=== PATIENT | male | born 1960 | race Caucasian/White ===

== ENCOUNTER 2016-12-16 15:24 | Emergency (ER) | payer MEDICARE, MEDICAID ==
[~2016-12-16] VITALS: Ht 170.2 cm; Wt 68.9 kg
[~2016-12-16 15:24] MED LIST: ATOR40TA PO; BUSP15TA PO; CIPR-262 PO; DIPH50CA37 PO; EMTR1TAB6 PO; FINA5TAB3 PO; GEMF600T3 PO; METR500T PO; NEVI400T PO; OMEP20CA4 PO; OXAN10TA PO; TRAZ-144 PO
--- NOTE | 2016-12-16 15:43 | NUR ---
PT IN ROOM AWAITING MSD.
[2016-12-16] MEDS ORDERED: predniSONE 20 MG TABLET PO ONE (18:15)
[2016-12-16] MEDS ORDERED: AZITHROMYCIN 250 MG TABLET PO ONE (18:15)
--- NOTE | 2016-12-16 18:16 | NUR ---
MSE COMPLETED, MEDS ADMINISRTERED, PT D/C'D HOME, ACI/RX X2 GIVEN. PT AMBUKLATED W/O DIFF/TOOK ALL BELONGINGS.
--- NOTE | 2016-12-16 18:18 | NUR ---
WAS NOTIED THAT PT ALLERGIC TO ZITHROMIACIN
[2016-12-16 18:20] VITALS: BP 142/92
[2016-12-16] MEDS ORDERED: AZITHROMYCIN 250 MG TABLET ONE (18:25)
[2016-12-16] MEDS ORDERED: predniSONE 10 MG TABLET ONE (18:26)
[2016-12-16] MEDS ORDERED: predniSONE 50 MG TABLET ONE (18:26)
== END 2016-12-16 18:22 | disposition home or self-care (01) ==
LOC: ER 15:24
DX: L03.211 Cellulitis of face (principal); G43.909 Migraine, unspecified, not intractable, without status migrainosus; I10 Essential (primary) hypertension; E78.00 Pure hypercholesterolemia, unspecified; F32.9 Major depressive disorder, single episode, unspecified; K21.9 Gastro-esophageal reflux disease without esophagitis; F41.9 Anxiety disorder, unspecified
CPT/HCPCS: 99283; A4663; J7512 ×2; Q0144

== ENCOUNTER 2017-01-17 22:47 | Emergency (ER) | payer MEDICARE, MEDICAID ==
[~2017-01-17] VITALS: Ht 170.2 cm; Wt 69.9 kg
[2017-01-17] MEDS ORDERED: LISI2.5T2 PO (23:01)
[2017-01-17] MEDS ORDERED: EMTR1TAB13 PO (23:01)
--- NOTE | 2017-01-17 23:12 | NUR ---
DR. PERKINS AT BEDSIDE FOR MSE.
[2017-01-17 23:46] LABS: BILIRUBIN,TOTAL 0.4 mg/dL (0.2-1.0); CREATININE 0.9 mg/dL (0.6-1.3); POTASSIUM 3.8 mmol/L (3.5-5.1)
[2017-01-18 00:22] LABS: HEMOGLOBIN 15.1 G/DL (14.0-18.0); MEAN CORPUSCULAR HEMOGLOBIN 32.3 UUG (27.0-31.0); MEAN CORPUSCULAR VOLUME 96.3 FL (82.0-92.0); RED BLOOD CELL COUNT(AUTO) 4.67 MIL/UL (4.7-6.1); WHITE BLOOD COUNT (AUTO) 5.6 K/UL (4.0-11.2)
[2017-01-18 00:23] LABS: BASOPHILS % (AUTO) 0.7 % (0.0-2.0); EOSINOPHILS % (AUTO) 2.2 % (0.0-7.0); LYMPHOCYTES # (AUTO) 2.8 K/UL (0.8-4.8); LYMPHOCYTES % (AUTO) 49.9 % (20.5-51.5); MEAN CORPUSCULAR HGB CONC 34 g/dL (32.0-37.0); MONOCYTES # (AUTO) 0.5 K/UL (0.1-1.30); MONOCYTES % (AUTO) 8.4 % (0.0-11.0); NEUTROPHILS # (AUTO) 2.2 K/UL (1.8-8.9); NEUTROPHILS % (AUTO) 38.8 % (38.5-71.5); PLATELET COUNT (AUTO) 242 K/UL (150-450)
[2017-01-18 00:24] LABS: EOSINOPHILS # (AUTO) 0.1 K/uL (0.0-0.7)
--- NOTE | 2017-01-18 00:56 | NUR ---
Patient discharged to home in stable conditon. Written and verbal after care instructions given. Patient verbalizes understanding of instructions. PATIENT LEFT WITH STABLE GAIT.
[2017-01-18 00:57] VITALS: BP 145/79
== END 2017-01-18 00:58 | disposition home or self-care (01) ==
LOC: ER 22:48
DX: L03.213 Periorbital cellulitis (principal); I10 Essential (primary) hypertension; E78.00 Pure hypercholesterolemia, unspecified; G43.909 Migraine, unspecified, not intractable, without status migrainosus; G89.29 Other chronic pain; J45.909 Unspecified asthma, uncomplicated; K21.9 Gastro-esophageal reflux disease without esophagitis; Z88.0 Allergy status to penicillin; Z88.8 Allergy status to other drugs, medicaments and biological substances
CPT/HCPCS: 36415; 70480; 80053; 85025; 99285; A4663

== ENCOUNTER 2017-03-31 18:11 | Emergency (ER) | payer MEDICARE, MEDICAID ==
[~2017-03-31] VITALS: Ht 170.2 cm; Wt 68.0 kg
[~2017-03-31 18:11] MED LIST changes: -CIPR-262 PO; +EMTR1TAB13 PO; -EMTR1TAB6 PO; +LISI2.5T2 PO; -METR500T PO
[2017-03-31] MEDS ORDERED: ACYC800T PO (18:27)
--- NOTE | 2017-03-31 19:00 | NUR ---
PT IS IN ROOM #2A. DR PERKINS EVALUATED THE PT.
[2017-03-31] MEDS: ONDANSETRON 4 MG/2 ML VIAL IV ONE (19:34)
[2017-03-31] MEDS: PANTOPRAZOLE SODIUM 40 MG VIAL IV ONE (19:36)
[2017-03-31] MEDS: MAG HYDROX/AL HYDROX/SIMETH 30 ML LIQUID UDC PO ONE (19:41)
[2017-03-31] MEDS ORDERED: ONDANSETRON 4 MG/2 ML VIAL ONE (19:44)
[2017-03-31] MEDS ORDERED: PANTOPRAZOLE SODIUM 40 MG VIAL ONE (19:45)
[2017-03-31] MEDS: IV NORMAL SALINE 1000 ML BAG IV ONE (19:47)
[2017-03-31 19:50] LABS: BASOPHILS % (AUTO) 0.3 % (0.0-2.0); EOSINOPHILS # (AUTO) 0.2 K/uL (0.0-0.7); EOSINOPHILS % (AUTO) 3.1 % (0.0-7.0); HEMATOCRIT 45.7 % (40-50); HEMOGLOBIN 15.2 G/DL (14.0-18.0); LYMPHOCYTES # (AUTO) 1.7 K/UL (0.8-4.8); MEAN CORPUSCULAR HEMOGLOBIN 31.7 UUG (27.0-31.0); MEAN CORPUSCULAR HGB CONC 33 g/dL (32.0-37.0); MEAN CORPUSCULAR VOLUME 95.4 FL (82.0-92.0); MONOCYTES % (AUTO) 14.9 % (0.0-11.0); NEUTROPHILS # (AUTO) 3.7 K/UL (1.8-8.9); NEUTROPHILS % (AUTO) 55.7 % (38.5-71.5); PLATELET COUNT (AUTO) 228 K/UL (150-450); RED BLOOD CELL COUNT(AUTO) 4.79 MIL/UL (4.7-6.1); WHITE BLOOD COUNT (AUTO) 6.6 K/UL (4.0-11.2)
--- NOTE | 2017-03-31 19:55 | NUR ---
PATIENT IN BED, NO ACUTE DISTRESS NOTED. STATES HIS NAUSEA IS IMPROVED. PER PATIENT STATEMENT " I FEEL BETTER, MORE RELAXED"
[2017-03-31] MEDS ORDERED: MAG HYDROX/AL HYDROX/SIMETH 30 ML LIQUID UDC ONE (19:56)
[2017-03-31 20:03] LABS: CREATININE 0.9 mg/dL (0.6-1.3); POTASSIUM 3.7 mmol/L (3.5-5.1)
[2017-03-31 20:10] LABS: BILIRUBIN,DIRECT 0.2 mg/dL (0.0-0.2); BILIRUBIN,TOTAL 0.8 mg/dL (0.2-1.0); TOTAL PROTEIN, SERUM 7.1 g/dL (6.4-8.2)
--- NOTE | 2017-03-31 20:55 | NUR ---
Patient discharged to home in stable conditon. Written and verbal after care instructions given. Patient verbalizes understanding of instructions. Ambulated from ER with stable gait. All belongings with patient. Peripheral IV removed prior to discharge.
[2017-03-31 21:17] VITALS: BP 120/78
[2017-04-01] MEDS ORDERED: GABAPENTIN 300 MG CAPSULE PO ONE (05:30)
== END 2017-03-31 21:18 | disposition home or self-care (01) ==
LOC: ER 18:18
DX: A08.4 Viral intestinal infection, unspecified (principal); E78.00 Pure hypercholesterolemia, unspecified; F41.9 Anxiety disorder, unspecified; I10 Essential (primary) hypertension; Z88.0 Allergy status to penicillin; Z88.2 Allergy status to sulfonamides; Z88.5 Allergy status to narcotic agent; K21.9 Gastro-esophageal reflux disease without esophagitis; J45.909 Unspecified asthma, uncomplicated
CPT/HCPCS: 36415; 80048; 80076; 83690; 85025; 96374; 96375; 99284; A4663; C9113; J2405

== ENCOUNTER 2017-04-07 19:39 | Emergency (ER) | payer MEDICARE, MEDICAID ==
[~2017-04-07] VITALS: Ht 170.2 cm; Wt 67.1 kg
[~2017-04-07 19:39] MED LIST changes: +ACYC800T PO; -OXAN10TA PO
[2017-04-07] MEDS ORDERED: ONDANSETRON ODT 4 MG TAB.RAPDIS SL ONE (21:00)
[2017-04-07] MEDS ORDERED: DIPHENOXYLATE HCL/ATROP SULF TABLET PO ONE (21:00)
[2017-04-07 21:08] LABS: BASOPHILS % (AUTO) 0.4 % (0.0-2.0); EOSINOPHILS # (AUTO) 0.1 K/uL (0.0-0.7); EOSINOPHILS % (AUTO) 0.7 % (0.0-7.0); HEMATOCRIT 46.6 % (40-50); HEMOGLOBIN 15.5 G/DL (14.0-18.0); LYMPHOCYTES # (AUTO) 2.4 K/UL (0.8-4.8); LYMPHOCYTES % (AUTO) 19.9 % (20.5-51.5); MEAN CORPUSCULAR HGB CONC 33 g/dL (32.0-37.0); MEAN CORPUSCULAR VOLUME 96.3 FL (82.0-92.0); MONOCYTES # (AUTO) 0.7 K/UL (0.1-1.30); MONOCYTES % (AUTO) 5.9 % (0.0-11.0); NEUTROPHILS # (AUTO) 8.8 K/UL (1.8-8.9); NEUTROPHILS % (AUTO) 73.1 % (38.5-71.5); PLATELET COUNT (AUTO) 273 K/UL (150-450); RED BLOOD CELL COUNT(AUTO) 4.84 MIL/UL (4.7-6.1)
[2017-04-07] MEDS ORDERED: ONDANSETRON ODT 4 MG TAB.RAPDIS ONE (21:13)
[2017-04-07] MEDS ORDERED: DIPHENOXYLATE HCL/ATROP SULF TABLET ONE (21:13)
[2017-04-07 21:21] LABS: CREATININE 0.8 mg/dL (0.6-1.3); POTASSIUM 3.8 mmol/L (3.5-5.1)
[2017-04-07 21:30] LABS: BILIRUBIN,DIRECT 0.2 mg/dL (0.0-0.2); BILIRUBIN,TOTAL 0.7 mg/dL (0.2-1.0); TOTAL PROTEIN, SERUM 7.6 g/dL (6.4-8.2)
--- NOTE | 2017-04-07 21:51 | NUR ---
Patient discharged to home in stable conditon. Written and verbal after care instructions given. Patient verbalizes understanding of instructions. Ambulated from Er with stable gait. All belongings with patient.
[2017-04-07 21:53] VITALS: BP 127/77
[2017-04-07] MEDS ORDERED: KETOROLAC TROMETHAMINE 30 MG INJ IVP ONE (22:00)
[2017-04-07] MEDS ORDERED: IV NORMAL SALINE 1000 ML BAG IV ONE (22:00)
[2017-04-07] MEDS ORDERED: HYDROMORPHONE 1 MG/1 ML DISP.SYRIN IV ONE (22:00)
[2017-04-07] MEDS ORDERED: ONDANSETRON 4 MG/2 ML VIAL IV ONE (22:00)
== END 2017-04-07 21:54 | disposition home or self-care (01) ==
LOC: ER 19:39
DX: K52.9 Noninfective gastroenteritis and colitis, unspecified (principal); E78.00 Pure hypercholesterolemia, unspecified; F41.9 Anxiety disorder, unspecified; I10 Essential (primary) hypertension; J45.909 Unspecified asthma, uncomplicated; K21.9 Gastro-esophageal reflux disease without esophagitis; Z88.0 Allergy status to penicillin; Z88.2 Allergy status to sulfonamides; Z88.5 Allergy status to narcotic agent; G43.909 Migraine, unspecified, not intractable, without status migrainosus
CPT/HCPCS: 36415; 83690; 85025; A4663; Q0162

== ENCOUNTER 2017-04-26 19:21 | Emergency (ER) | payer MEDICARE, MEDICAID ==
[~2017-04-26] VITALS: Ht 170.2 cm; Wt 67.1 kg
[2017-04-26] MEDS ORDERED: IV NORMAL SALINE 1000 ML BAG IV ONE (21:00)
[2017-04-26] MEDS ORDERED: ONDANSETRON 4 MG/2 ML VIAL IV ONE (21:00)
[2017-04-26 21:43] LABS: BASOPHILS % (AUTO) 0.2 % (0.0-2.0); EOSINOPHILS # (AUTO) 0.1 K/uL (0.0-0.7); EOSINOPHILS % (AUTO) 0.4 % (0.0-7.0); HEMATOCRIT 48.2 % (36.7-47.1); HEMOGLOBIN 16.5 g/dL (12.5-16.3); LYMPHOCYTES % (AUTO) 7.7 % (20.5-51.5); MEAN CORPUSCULAR HEMOGLOBIN 32.9 uug (23.8-33.4); MEAN CORPUSCULAR HGB CONC 34 g/dL (32.5-36.3); MEAN CORPUSCULAR VOLUME 95.8 fL (73.0-96.2); MONOCYTES # (AUTO) 0.7 K/uL (2.0-10.0); MONOCYTES % (AUTO) 5.3 % (0.0-11.0); NEUTROPHILS # (AUTO) 11.7 K/uL (1.8-8.9); NEUTROPHILS % (AUTO) 86.4 % (38.5-71.5); PLATELET COUNT (AUTO) 257 K/uL (152-348); RED BLOOD CELL COUNT(AUTO) 5.03 MIL/uL (4.06-5.63); WHITE BLOOD COUNT (AUTO) 13.5 K/uL (3.6-10.2)
[2017-04-26 21:55] LABS: CREATININE 0.9 mg/dL (0.6-1.3); POTASSIUM 4.1 mmol/L (3.5-5.1)
--- NOTE | 2017-04-26 21:57 | NUR ---
56 Y/O MALE PLACED IN BED 2B C/O ABDOMINAL CRAMPING WITH DIARRHEA. PT SEEN BY . Bartolome/Nicole PLACED AND IVF RUNNING. LABS DRAWN AND SENT TO LAB. ZOFRAN GIVEN IV. PT AT THIS TIME APPEARS COMFORTABLE.
[2017-04-26] MEDS ORDERED: ONDANSETRON 4 MG/2 ML VIAL ONE ×2 (21:59→22:00)
[2017-04-26 22:00] LABS: BILIRUBIN,DIRECT 0.1 mg/dL (0.0-0.2); BILIRUBIN,TOTAL 0.7 mg/dL (0.2-1.0); TOTAL PROTEIN, SERUM 7.9 g/dL (6.4-8.2)
--- NOTE | 2017-04-26 22:50 | NUR ---
DX - DIARRHEA. ACI WITH RX GIVEN. PT DISCHARGED HOME TO FOLLOW UP WITH PMD.
[2017-04-26 23:03] LABS: *BILIRUBIN,URIN NEGATIVE (NEGATIVE); *BLOOD, URINE NEGATIVE (NEGATIVE); *CLARITY,URINE CLEAR (CLEAR); *COLOR,URINE YELLOW (YELLOW); *KETONES,URINE NEGATIVE (NEGATIVE); *PROTEIN,URINE NEGATIVE (NEGATIVE); *UROBILINOGEN,URINE 0.2 E.U./dl (NORMAL); LEUKOCYTE ESTERASE ,URINE NEGATIVE (NEGATIVE); NITRITE, URINE NEGATIVE (NEGATIVE); UGLUCOSE NEGATIVE (NEGATIVE)
[2017-04-26 23:10] LABS: BACTERIA,URINE NONE SEEN /HPF (NONE SEEN); MUCUS,URINE FEW /LPF (0-FEW); RBC,URINE 0-3 /HPF (0-3); SQUAMOUS EPITHELIAL CELL,UR FEW /HPF (NONE SEEN); WBC,URINE NONE SEEN /HPF (0-3)
[2017-04-26] MEDS ORDERED: ONDANSETRON ODT 4 MG TAB.RAPDIS SL ONE (23:15)
[2017-04-26] MEDS ORDERED: ONDANSETRON HCL 4 MG TABLET ONE (23:22)
== END 2017-04-26 22:54 | disposition home or self-care (01) ==
LOC: ER 19:21
DX: R11.2 Nausea with vomiting, unspecified (principal); R19.7 Diarrhea, unspecified; R10.9 Unspecified abdominal pain; E78.00 Pure hypercholesterolemia, unspecified; I10 Essential (primary) hypertension; J45.909 Unspecified asthma, uncomplicated; K21.9 Gastro-esophageal reflux disease without esophagitis; Z88.0 Allergy status to penicillin; Z88.2 Allergy status to sulfonamides; Z88.5 Allergy status to narcotic agent; R51 Headache
CPT/HCPCS: 36415; 70030-TC; 83690; 85025; 93005; A4663; J2405; J7030; Q0162

== ENCOUNTER 2017-12-26 23:13 | Emergency (ER) | payer MEDICARE, MEDICAID ==
[~2017-12-26] VITALS: Ht 170.2 cm; Wt 67.6 kg
[~2017-12-26 23:13] MED LIST changes: -TRAZ-144 PO; +TRAZ-182 PO
--- NOTE | 2017-12-26 23:25 | NUR ---
To room 2B; seen and evaluated by Dr. Ramos.
[2017-12-26] MEDS ORDERED: IV NORMAL SALINE 1000 ML BAG IV ONE (23:30)
[2017-12-26] MEDS ORDERED: KETOROLAC TROMETHAMINE 30 MG INJ IM ONE (23:30)
[2017-12-26] MEDS ORDERED: METOCLOPRAMIDE HCL 10 MG/2 ML VIAL IV ONE (23:30)
[2017-12-26 23:47] LABS: BASOPHILS # (AUTO) 0.1 K/uL (0.0-8.0); BASOPHILS % (AUTO) 0.9 % (0.0-2.0); EOSINOPHILS # (AUTO) 0.1 K/uL (0.0-0.7); EOSINOPHILS % (AUTO) 1.7 % (0.0-7.0); HEMATOCRIT 41.6 % (36.7-47.1); HEMOGLOBIN 14.6 g/dL (12.5-16.3); LYMPHOCYTES # (AUTO) 2.6 K/uL (20.0-40.0); LYMPHOCYTES % (AUTO) 40.1 % (20.5-51.5); MEAN CORPUSCULAR HEMOGLOBIN 33.4 uug (23.8-33.4); MEAN CORPUSCULAR HGB CONC 35 g/dL (32.5-36.3); MEAN CORPUSCULAR VOLUME 95.2 fL (73.0-96.2); MONOCYTES # (AUTO) 0.6 K/uL (2.0-10.0); MONOCYTES % (AUTO) 9.7 % (0.0-11.0); NEUTROPHILS % (AUTO) 47.6 % (38.5-71.5); PLATELET COUNT (AUTO) 260 K/uL (152-348); RED BLOOD CELL COUNT(AUTO) 4.36 MIL/uL (4.06-5.63); WHITE BLOOD COUNT (AUTO) 6.4 K/uL (3.6-10.2)
[2017-12-26 23:55] LABS: CREATININE 0.8 mg/dL (0.6-1.3); POTASSIUM 3.5 mmol/L (3.5-5.1)
[2017-12-27] MEDS ORDERED: METOCLOPRAMIDE HCL 10 MG/2 ML VIAL ONE (00:04)
[2017-12-27] MEDS ORDERED: KETOROLAC TROMETHAMINE 30 MG INJ ONE (00:04)
[2017-12-27] MEDS ORDERED: KETOROLAC TROMETHAMINE 30 MG INJ IVP ONE (00:15)
[2017-12-27] MEDS ORDERED: LISINOPRIL 10 MG TABLET PO ONE (00:30)
[2017-12-27] MEDS ORDERED: LISINOPRIL 5 MG TABLET ONE (00:56)
[2017-12-27] MEDS ORDERED: diphenhydrAMINE 50 MG/1 ML VIAL IV ONE (01:00)
[2017-12-27] MEDS ORDERED: PROCHLORPERAZINE EDISYLATE 10 MG/2 ML VIAL IV ONE (01:00)
[2017-12-27] MEDS ORDERED: PROCHLORPERAZINE EDISYLATE 10 MG/2 ML VIAL ONE (01:06)
[2017-12-27] MEDS ORDERED: diphenhydrAMINE 50 MG/1 ML VIAL ONE (01:06)
[2017-12-27] MEDS ORDERED: MAGNESIUM SULFATE/D5W 100 ML ONE ×2 (01:06→02:03)
[2017-12-27] MEDS: MAGNESIUM SULFATE/D5W 100 ML IV SCH ×2 (01:17→02:23)
--- NOTE | 2017-12-27 02:00 | NUR ---
Sleeping; NAD noted. BPs stable.
--- NOTE | 2017-12-27 02:25 | NUR ---
Dr. Ramos discussed results of labs with patient. Will Dc home.
--- NOTE | 2017-12-27 02:30 | NUR ---
Patient claims he feels a lot better; migraine headaches relieved.
--- NOTE | 2017-12-27 02:50 | NUR ---
Patient discharged to home in stable conditon. Written and verbal after care instructions given. Patient verbalizes understanding of instructions.
[2017-12-27 02:58] VITALS: BP 126/66
== END 2017-12-27 02:50 | disposition home or self-care (01) ==
LOC: ER 23:16
DX: S80.862A Insect bite (nonvenomous), left lower leg, initial encounter (principal); G43.909 Migraine, unspecified, not intractable, without status migrainosus; B20 Human immunodeficiency virus [HIV] disease; I10 Essential (primary) hypertension; E78.00 Pure hypercholesterolemia, unspecified; K21.9 Gastro-esophageal reflux disease without esophagitis; J45.909 Unspecified asthma, uncomplicated; Z90.89 Acquired absence of other organs; Z88.2 Allergy status to sulfonamides; Z88.0 Allergy status to penicillin; Z88.5 Allergy status to narcotic agent; Z88.8 Allergy status to other drugs, medicaments and biological substances; W57.XXXA Bitten or stung by nonvenomous insect and other nonvenomous arthropods, initial encounter; Y93.89 Activity, other specified; Y92.89 Other specified places as the place of occurrence of the external cause; Y99.8 Other external cause status
CPT/HCPCS: 36415; 80048; 85025; 96365; 96375; 99284; A4663; J0780; J1200; J1885; J2765; J3475 ×2; J7030

== ENCOUNTER 2018-02-15 22:34 | Emergency (ER) | payer MEDICARE, MEDICAID ==
[~2018-02-15] VITALS: Ht 170.2 cm; Wt 68.9 kg
[~2018-02-15 22:34] MED LIST changes: -GEMF600T3 PO; +GEMF600T4 PO
--- NOTE | 2018-02-15 23:40 | NUR ---
Patient out of unit for ct scan via wheelchair
--- NOTE | 2018-02-16 | NUR ---
Patient back from ct scan with no distress noted
--- NOTE | 2018-02-16 01:05 | NUR ---
Dr Mckeon into re eval patient
[2018-02-16] MEDS ORDERED: CEPHALEXIN MONOHYDRATE 500 MG CAPSULE ONE (01:17)
[2018-02-16] MEDS: CEPHALEXIN MONOHYDRATE 500 MG CAPSULE PO ONE (01:18)
[2018-02-16 01:28] VITALS: BP 148/95
--- NOTE | 2018-02-16 01:28 | NUR ---
Patient discharged to home in stable conditon. Written and verbal after care instructions given. Patient verbalizes understanding of instructions.
== END 2018-02-16 01:29 | disposition home or self-care (01) ==
LOC: ER 22:37
DX: S16.1XXA Strain of muscle, fascia and tendon at neck level, initial encounter (principal); M54.5 Low back pain; L03.211 Cellulitis of face; G89.29 Other chronic pain; M54.2 Cervicalgia; I10 Essential (primary) hypertension; E78.00 Pure hypercholesterolemia, unspecified; J45.909 Unspecified asthma, uncomplicated; K21.9 Gastro-esophageal reflux disease without esophagitis; Z88.2 Allergy status to sulfonamides; Z88.0 Allergy status to penicillin; Z88.1 Allergy status to other antibiotic agents; Z88.5 Allergy status to narcotic agent; Z88.8 Allergy status to other drugs, medicaments and biological substances; V49.9XXA Car occupant (driver) (passenger) injured in unspecified traffic accident, initial encounter; Y93.89 Activity, other specified; Y92.410 Unspecified street and highway as the place of occurrence of the external cause; Y99.8 Other external cause status
CPT/HCPCS: 70486; 72125; 72131; A4663

== ENCOUNTER 2018-03-23 23:29 | Emergency (ER) | payer MEDICARE, MEDICAID ==
[~2018-03-23] VITALS: Ht 170.2 cm; Wt 61.7 kg
[2018-03-24] MEDS ORDERED: IV NORMAL SALINE 1000 ML BAG IV ONE (00:15)
[2018-03-24] MEDS ORDERED: ONDANSETRON 4 MG/2 ML VIAL IV ONE (00:15)
[2018-03-24] MEDS ORDERED: ONDANSETRON 4 MG/2 ML VIAL ONE (00:28)
[2018-03-24 00:31] LABS: *BILIRUBIN,URIN NEGATIVE (NEGATIVE); *BLOOD, URINE NEGATIVE (NEGATIVE); *CLARITY,URINE CLEAR (CLEAR); *COLOR,URINE YELLOW (YELLOW); *KETONES,URINE NEGATIVE (NEGATIVE); *PROTEIN,URINE 2+ (NEGATIVE); *UROBILINOGEN,URINE 0.2 E.U./dl (NORMAL); LEUKOCYTE ESTERASE ,URINE NEGATIVE (NEGATIVE); NITRITE, URINE NEGATIVE (NEGATIVE); PH,URINE 5.5 (5.0-8.0); UGLUCOSE NEGATIVE (NEGATIVE)
[2018-03-24 00:34] LABS: BASOPHILS % (AUTO) 0.2 % (0.0-2.0); EOSINOPHILS % (AUTO) 0.3 % (0.0-7.0); HEMOGLOBIN 17.6 g/dL (12.5-16.3); LYMPHOCYTES # (AUTO) 0.8 K/uL (20.0-40.0); LYMPHOCYTES % (AUTO) 13.8 % (20.5-51.5); MEAN CORPUSCULAR HEMOGLOBIN 33.5 uug (23.8-33.4); MEAN CORPUSCULAR HGB CONC 35 g/dL (32.5-36.3); MONOCYTES % (AUTO) 16.1 % (0.0-11.0); NEUTROPHILS # (AUTO) 4.2 K/uL (1.8-8.9); NEUTROPHILS % (AUTO) 69.6 % (38.5-71.5); PLATELET COUNT (AUTO) 226 K/uL (152-348); RED BLOOD CELL COUNT(AUTO) 5.25 MIL/uL (4.06-5.63)
[2018-03-24 00:50] LABS: BACTERIA,URINE FEW /HPF (NONE SEEN); MUCUS,URINE MANY /LPF (0-FEW); RBC,URINE 0-3 /HPF (0-3); SQUAMOUS EPITHELIAL CELL,UR NONE SEEN /HPF (NONE SEEN); WBC,URINE 0-3 /HPF (0-3)
[2018-03-24 00:52] LABS: BILIRUBIN,DIRECT 0.2 mg/dL (0.0-0.2); BILIRUBIN,TOTAL 0.7 mg/dL (0.2-1.0); CREATININE 0.9 mg/dL (0.6-1.3); POTASSIUM 3.6 mmol/L (3.5-5.1); TOTAL PROTEIN, SERUM 8.5 g/dL (6.4-8.2)
[2018-03-24] MEDS ORDERED: IV NORMAL SALINE 500 ML BAG IV ONE (01:15)
[2018-03-24 01:16] LABS: LYMPHOCYTES % (MANUAL) 15 % (20-40); MONOCYTES % (MANUAL) 13 % (2-10); NEUTROPHILS % (MANUAL) 72 % (42-75)
--- NOTE | 2018-03-24 02:47 | NUR ---
IV removed. Catheter intact and site benign. Pressure and 4x4 gauze applied to site. No bleeding noted.
--- NOTE | 2018-03-24 02:56 | NUR ---
Patient discharged to home in stable conditon. Written and verbal after care instructions given. Patient verbalizes understanding of instructions. Pt ambulated out of ER in steady gait. All belongings with pt. VSS. NAD noted. Pt states he feels much better.
[2018-03-24 02:58] VITALS: BP 138/88
== END 2018-03-24 02:59 | disposition home or self-care (01) ==
LOC: ER 23:31
DX: E86.0 Dehydration (principal); R00.0 Tachycardia, unspecified; I10 Essential (primary) hypertension; E78.00 Pure hypercholesterolemia, unspecified; J45.909 Unspecified asthma, uncomplicated; K21.9 Gastro-esophageal reflux disease without esophagitis; Z88.0 Allergy status to penicillin; Z88.5 Allergy status to narcotic agent; Z88.1 Allergy status to other antibiotic agents; Z88.2 Allergy status to sulfonamides; Z88.8 Allergy status to other drugs, medicaments and biological substances; Z90.89 Acquired absence of other organs
CPT/HCPCS: 36415; 80048; 80076; 81001; 83605; 83690; 84484; 85025; 85730; 86625; 87015; 87046; 87427; 87493; 87899; 93005; 96361; 96374; 99284; J2405; 70030-TC; A4663; J7030; J7040

== ENCOUNTER 2018-04-25 04:10 | Emergency (ER) | payer MEDICARE, MEDICAID ==
[~2018-04-25] VITALS: Ht 170.2 cm; Wt 61.2 kg
[~2018-04-25 04:10] MED LIST changes: -GEMF600T4 PO; +GEMF600T5 PO
--- NOTE | 2018-04-25 05:24 | NUR ---
Pt. ambulated into ED w/ c/o supraorbital L forehead pain 11/08, posterior L head pain 11/08, redness L eye w/ reports of blurred vision on that side, 10/09 pain to L 5th toe from bumping into furniture, denies CP/SOB/F/C/N/V/D, will continue to monitor, MD at bedside for MSE,
--- NOTE | 2018-04-25 05:25 | NUR ---
Rad. tech. at bedside for xray
--- NOTE | 2018-04-25 05:30 | NUR ---
Cm street at bedside for transport to CT,
[2018-04-25] MEDS ORDERED: LISINOPRIL 10 MG TABLET ONE (06:14)
[2018-04-25] MEDS: LISINOPRIL 10 MG TABLET PO ONE (06:27)
--- NOTE | 2018-04-25 06:28 | NUR ---
Patient discharged to home in stable conditon. Written and verbal after care instructions given. Patient verbalizes understanding of instructions. Pt. d/c per MD orders, d/c papers signed, all belongings w/ pt., ambulated out of ED w/ steady gait, left in private vehicle, ID band removed, no acute distress,
[2018-04-25 06:29] VITALS: BP 148/108
== END 2018-04-25 06:30 | disposition home or self-care (01) ==
LOC: ER 04:12
DX: S90.122A Contusion of left lesser toe(s) without damage to nail, initial encounter (principal); H11.32 Conjunctival hemorrhage, left eye; M47.892 Other spondylosis, cervical region; I10 Essential (primary) hypertension; E78.00 Pure hypercholesterolemia, unspecified; J45.909 Unspecified asthma, uncomplicated; K21.9 Gastro-esophageal reflux disease without esophagitis; G89.29 Other chronic pain; M54.2 Cervicalgia; Z88.0 Allergy status to penicillin; Z88.1 Allergy status to other antibiotic agents; Z88.2 Allergy status to sulfonamides; Z88.5 Allergy status to narcotic agent; Z88.8 Allergy status to other drugs, medicaments and biological substances; Z79.899 Other long term (current) drug therapy; Z79.891 Long term (current) use of opiate analgesic; W22.8XXA Striking against or struck by other objects, initial encounter; Y93.89 Activity, other specified; Y92.89 Other specified places as the place of occurrence of the external cause; Y99.8 Other external cause status
CPT/HCPCS: 72125; 73660; A4663

== ENCOUNTER 2018-10-31 22:57 | Inpatient (IN) | payer MEDICARE, MEDICAID ==
[~2018-10-31] VITALS: Ht 170.2 cm; Wt 70.3 kg
[2018-10-31 23:56] LABS: BASOPHILS % (AUTO) 0.7 % (0.0-2.0); EOSINOPHILS # (AUTO) 0.1 K/uL (0.0-0.7); EOSINOPHILS % (AUTO) 2.2 % (0.0-7.0); HEMATOCRIT 42.7 % (36.7-47.1); HEMOGLOBIN 14.6 g/dL (12.5-16.3); LYMPHOCYTES # (AUTO) 2.7 K/uL (20.0-40.0); LYMPHOCYTES % (AUTO) 44.5 % (20.5-51.5); MEAN CORPUSCULAR HEMOGLOBIN 32.5 uug (23.8-33.4); MEAN CORPUSCULAR HGB CONC 34 g/dL (32.5-36.3); MEAN CORPUSCULAR VOLUME 95.4 fL (73.0-96.2); MONOCYTES # (AUTO) 0.6 K/uL (2.0-10.0); MONOCYTES % (AUTO) 9.4 % (0.0-11.0); NEUTROPHILS # (AUTO) 2.6 K/uL (1.8-8.9); NEUTROPHILS % (AUTO) 43.2 % (38.5-71.5); PLATELET COUNT (AUTO) 228 K/uL (152-348); RED BLOOD CELL COUNT(AUTO) 4.48 MIL/uL (4.06-5.63); WHITE BLOOD COUNT (AUTO) 6.1 K/uL (3.6-10.2)
[2018-11-01 00:08] LABS: CREATININE 0.9 mg/dL (0.6-1.3); POTASSIUM 3.8 mmol/L (3.5-5.1)
[2018-11-01 00:21] LABS: BILIRUBIN,DIRECT 0.1 mg/dL (0.0-0.2); BILIRUBIN,TOTAL 0.4 mg/dL (0.2-1.0); TOTAL PROTEIN, SERUM 7.8 g/dL (6.4-8.2)
--- NOTE | 2018-11-01 00:57 | NUR ---
Pt. resting in bed, bed in low position, wheels locked, all pt. needs met, NAD
[2018-11-01] MEDS ORDERED: NITROGLYCERIN 0.4 MG/TAB BOTTLE SL ONE ×2 (01:28→01:30)
--- NOTE | 2018-11-01 01:30 | NUR ---
1st nitro given
--- NOTE | 2018-11-01 01:34 | NUR ---
Called for tele bed, pt. to admit to [phone]
--- NOTE | 2018-11-01 01:39 | NUR ---
[facility] called for panel call
--- NOTE | 2018-11-01 01:41 | NUR ---
CP resolved after 1st nitro,
[2018-11-01] MEDS ORDERED: EMTR1TAB6 PO (01:49)
[2018-11-01] MEDS ORDERED: EMTR1TAB13 PO (01:51)
--- NOTE | 2018-11-01 02:30 | NUR ---
Gave report to Luz Marina
[2018-11-01] MEDS ORDERED: Z GUARD REMEDY PASTE 57 GM TUBE TOP PRN (02:45)
[2018-11-01] MEDS ORDERED: HYDROCODONE/APAP 5-325MG TABLET PO PRN (02:45)
[2018-11-01] MEDS ORDERED: ONDANSETRON 4 MG/2 ML VIAL IV PRN (02:45)
[2018-11-01] MEDS ORDERED: NITROGLYCERIN 0.4 MG/TAB BOTTLE SL PRN (02:45)
[2018-11-01] MEDS ORDERED: MORPHINE SULFATE 2 MG/1 ML DISP.SYRIN IV PRN (02:45)
[2018-11-01] MEDS ORDERED: BUSPIRONE PO SCH ×3 (02:45→21:00)
[2018-11-01] MEDS ORDERED: MAGNESIUM HYDROXIDE 30 ML LIQUID UDC PO PRN (02:45)
[2018-11-01] MEDS ORDERED: ACETAMINOPHEN 325 MG TABLET PO PRN (02:45)
--- NOTE | 2018-11-01 03:00 | NUR ---
Received patient from ED via wheelchair, accompanied by Umer ED RN. Patient is alert and oriented x 4, ambulatory. No complaints of chest pain at the moment. Patient brought with him some home medications which we will send to the pharmacy. Patient oriented to unit. Noise and lights subdued. Will continue to monitor.
--- NOTE | 2018-11-01 03:15 | NUR ---
Pt. transferred off unit via wheelchair, all belongings w/ pt., IV intact, chart copied and sent w/ pt., NAD
[2018-11-01 03:29] VITALS: BP 151/103
[2018-11-01] MEDS ORDERED: BUSPIRONE PO ONE ×2 (04:15)
[2018-11-01] MEDS ORDERED: ENOXAPARIN SODIUM 40 MG/0.4 ML DISP.SYRIN SQ ONE (04:15)
[2018-11-01] MEDS ORDERED: busPIRone 5 MG TABLET ONE ×2 (04:17→20:28)
--- NOTE | 2018-11-01 06:04 | NUR ---
Patient slept well throughout the night, no recurrence of any chest pain. Attended all needs, ensured safety and comfort. Patient was given the due 45mg [employer] rehabilitation services aide as confirmed by pharmacy only 45mg is the due dose.
[2018-11-01 06:24] VITALS: BP 120/84
--- NOTE | 2018-11-01 07:34 | NUR ---
Patient resting comfortably in bed at this time. SR on tele. no complaints of Chest pain at this time. A/Ox4. Stable condition. No signs of distress. Call light within reach of patient. Will continue to monitor throughout shift.
[2018-11-01 08:16] VITALS: BP 145/89
[2018-11-01] MEDS: GEMFIBROZIL 600 MG TABLET PO SCH ×2 (08:27→16:25)
[2018-11-01] MEDS ORDERED: PANTOPRAZOLE SODIUM 40 MG TABLET.DR PO SCH (08:30)
[2018-11-01] MEDS ORDERED: Medication Not On Formulary EA (Emtricitabine/Tenofov Alafenam (Descovy 200-25 mg Tablet PO SCH (09:00)
[2018-11-01] MEDS ORDERED: busPIRone 5 MG TABLET PO SCH (09:00)
[2018-11-01] MEDS ORDERED: NEVIRAPINE 400 MG PO SCH (09:00)
[2018-11-01] MEDS ORDERED: FINASTERIDE 5 MG TABLET PO SCH (09:00)
[2018-11-01] MEDS ORDERED: OMEPRAZOLE 40 MG PO SCH (09:00)
[2018-11-01] MEDS ORDERED: BUSPIRONE HCL 15 MG PO SCH (09:00)
[2018-11-01] MEDS ORDERED: LISINOPRIL 5 MG TABLET PO SCH (09:24)
[2018-11-01 09:53] LABS: MAGNESIUM 2.1 mg/dL (1.8-2.4)
[2018-11-01] MEDS ORDERED: VIRAMUNE PO SCH (10:00)
[2018-11-01] MEDS ORDERED: DESCOVY 200-25MG TABLET PO SCH (10:00)
[2018-11-01 11:50] LABS: *BILIRUBIN,URIN NEGATIVE (NEGATIVE); *BLOOD, URINE NEGATIVE (NEGATIVE); *CLARITY,URINE CLEAR (CLEAR); *COLOR,URINE YELLOW (YELLOW); *KETONES,URINE NEGATIVE (NEGATIVE); *UROBILINOGEN,URINE 0.2 E.U./dl (NORMAL); LEUKOCYTE ESTERASE ,URINE NEGATIVE (NEGATIVE); NITRITE, URINE NEGATIVE (NEGATIVE); PH,URINE 5.5 (5.0-8.0); UGLUCOSE NEGATIVE (NEGATIVE)
[2018-11-01 11:52] LABS: *AMPHETAMINE, URINE NEGATIVE (NEGATIVE); *BARBITURATE, URINE NEGATIVE (NEGATIVE); *CANNABINOID, URINE NEGATIVE (NEGATIVE); *COCCAINE, URINE NEGATIVE (NEGATIVE); *OPIATE, URINE NEGATIVE (NEGATIVE); *PHENCYCLIDINE SCREEN,URINE NEGATIVE (NEGATIVE)
[2018-11-01 11:56] VITALS: BP 120/83
--- NOTE | 2018-11-01 12:18 | NUR ---
No complaints of chest pain throughout shift thus far.
[2018-11-01 15:25] VITALS: BP 151/86
[2018-11-01] MEDS ORDERED: ACYCLOVIR 200 MG CAPSULE PO SCH (17:22)
--- NOTE | 2018-11-01 18:25 | NUR ---
NSR on telemetry. No complaints of chest pain throughout entire shift. Vital signs stable. Echocardiogram completed. Awaiting Information Systems Manager consultation. Stable throughout shift. No signs of distress. Safety measures implemented. Call light within reach. Will continue to monitor patient until end of shift.
--- NOTE | 2018-11-01 19:30 | NUR ---
Received patient awake in bed, alert and oriented x4 and ambulatory. No complaints of chest pain. Noted awaiting cardiology consult, pending to be cleared for discharge. will continue to monitor.
--- NOTE | 2018-11-01 20:00 | NUR ---
Communicated with Cb Palacios that patient wants to go home tonight and asked if an outpatient cardiology consult will be possible. Cb said patient can go AMA if he wants but he would like the patient to be seen by the underwriting service representative. Spoke and explained Cb's decision to patient who verbalized understanding and opted to wait for the underwriting service representative.
[2018-11-01 20:05] VITALS: BP 139/82
[2018-11-01] MEDS ORDERED: ATORVASTATIN 40 MG TABLET PO SCH (21:00)
[2018-11-01] MEDS ORDERED: TRAZODONE 50 MG TABLET PO SCH (21:00)
--- NOTE | 2018-11-01 21:33 | NUR ---
Dr. Joiner here to see the patient. Per Dr. Joiner patient can be discharged tonshelley holloway. Awaiting discharge orders.
--- NOTE | 2018-11-01 22:25 | NUR ---
Wheeled patient to hospital lobby accompanied by ULISES in stable condition. Patient discharged via private car accompanied by Mak, friend/partner. Patient has all discharge paperwork and he verbalized he will follow up with his PCP and homemaking rehabilitation consultant as instructed by Cb Palacios DNP. Patient was instructed also to come back tomorrow to sheepskin pickler his home medications from the pharmacy, patient verbalized understanding. Patient informed that pharmacy is open from 7am to 9pm tomorrow. Nursing art objects supervisor and charge nurse aware of this circumstance.
[2018-11-02] MEDS ORDERED: ENOXAPARIN SODIUM 40 MG/0.4 ML DISP.SYRIN SQ SCH (09:00)
[2018-11-02] MEDS ORDERED: ASPIRIN EC 81 MG TABLET.DR PO SCH (09:00)
== END 2018-11-01 22:25 | disposition home or self-care (01) | DRG 303 ==
LOC: ER 22:57 → TELE3 11-01 02:44
PROVIDERS: ADMIT Nurse Practitioner Acute Care; ATTEND Hospitalist
DX: I25.10 Atherosclerotic heart disease of native coronary artery without angina pectoris (principal); F41.9 Anxiety disorder, unspecified; G89.4 Chronic pain syndrome; K21.9 Gastro-esophageal reflux disease without esophagitis; I10 Essential (primary) hypertension; Z86.19 Personal history of other infectious and parasitic diseases; F10.21 Alcohol dependence, in remission; Z87.891 Personal history of nicotine dependence; E78.5 Hyperlipidemia, unspecified; K58.9 Irritable bowel syndrome, unspecified; J45.909 Unspecified asthma, uncomplicated; Z79.899 Other long term (current) drug therapy; I11.9 Hypertensive heart disease without heart failure; I07.1 Rheumatic tricuspid insufficiency; G43.909 Migraine, unspecified, not intractable, without status migrainosus; G62.9 Polyneuropathy, unspecified; Z83.3 Family history of diabetes mellitus; Z82.49 Family history of ischemic heart disease and other diseases of the circulatory system; F43.9 Reaction to severe stress, unspecified; E78.00 Pure hypercholesterolemia, unspecified
CPT/HCPCS: 36415; 70030-TC; 71045; 80307; 83735; 84100; 85025; 85730; 87086; 87400; 93005; 93307; A4663; G0378; J1650; J2405

== ENCOUNTER 2018-11-24 20:46 | Emergency (ER) | payer MEDICARE, MEDICAID ==
[~2018-11-24] VITALS: Ht 170.2 cm; Wt 70.8 kg
--- NOTE | 2018-11-24 21:02 | NUR ---
x-ray tech at bedside.
--- NOTE | 2018-11-24 21:20 | NUR ---
Patient discharged to home in stable conditon. Written and verbal after care instructions given. Patient verbalizes understanding of instructions. patient alert and oriented x4. patient able to ambulate self. all personal belongings and exit care package taken with patient.
[2018-11-24 21:22] VITALS: BP 129/78
== END 2018-11-24 21:19 | disposition home or self-care (01) ==
LOC: ER 20:46
DX: S90.122A Contusion of left lesser toe(s) without damage to nail, initial encounter (principal); G43.909 Migraine, unspecified, not intractable, without status migrainosus; I10 Essential (primary) hypertension; E78.00 Pure hypercholesterolemia, unspecified; F41.9 Anxiety disorder, unspecified; K21.9 Gastro-esophageal reflux disease without esophagitis; Z88.2 Allergy status to sulfonamides; Z88.0 Allergy status to penicillin; Z88.5 Allergy status to narcotic agent; Z88.8 Allergy status to other drugs, medicaments and biological substances; Z79.899 Other long term (current) drug therapy; W22.8XXA Striking against or struck by other objects, initial encounter; Y93.89 Activity, other specified; Y92.89 Other specified places as the place of occurrence of the external cause; Y99.8 Other external cause status
CPT/HCPCS: 73630; A4663

== ENCOUNTER 2020-03-16 14:55 | Emergency (ER) | payer MEDICARE, OTHER ==
[~2020-03-16] VITALS: Ht 170.2 cm; Wt 70.8 kg
--- NOTE | 2020-03-16 15:11 | NUR ---
Dr Yates at the bedside for MSE.
[2020-03-16] MEDS ORDERED: METOCLOPRAMIDE HCL 10 MG/2 ML VIAL IM ONE (15:15)
[2020-03-16] MEDS ORDERED: diphenhydrAMINE 50 MG/1 ML VIAL IM ONE (15:15)
[2020-03-16] MEDS ORDERED: diphenhydrAMINE 50 MG/1 ML VIAL ONE (15:18)
[2020-03-16] MEDS ORDERED: METOCLOPRAMIDE HCL 10 MG/2 ML VIAL ONE (15:18)
--- NOTE | 2020-03-16 15:43 | NUR ---
Pt states feeling better and headache is decreased.
[2020-03-16 15:54] VITALS: BP 138/88
--- NOTE | 2020-03-16 15:55 | NUR ---
Patient discharged to home in stable condition. Written and verbal after care instructions given. Patient verbalizes understanding of instructions. Stressed follow up or return to ER for worsening s/s.
== END 2020-03-16 15:55 | disposition home or self-care (01) ==
LOC: ER 15:00
DX: G43.909 Migraine, unspecified, not intractable, without status migrainosus (principal); I10 Essential (primary) hypertension; K21.9 Gastro-esophageal reflux disease without esophagitis; G89.4 Chronic pain syndrome; E78.00 Pure hypercholesterolemia, unspecified; J45.909 Unspecified asthma, uncomplicated; G62.9 Polyneuropathy, unspecified; F41.9 Anxiety disorder, unspecified; Z88.1 Allergy status to other antibiotic agents; Z88.5 Allergy status to narcotic agent; Z88.2 Allergy status to sulfonamides; Z79.899 Other long term (current) drug therapy
CPT/HCPCS: 96372 ×2; 99284; J1200; J2765; A4663

== ENCOUNTER 2020-04-26 18:20 | Emergency (ER) | payer MEDICARE, OTHER ==
[~2020-04-26] VITALS: Ht 170.2 cm; Wt 71.2 kg
[2020-04-26] MEDS ORDERED: NEOMY/BACITRA/POLYMYXIN B OINT UD PACKET TP ONE ×2 (18:45→18:54)
--- NOTE | 2020-04-26 19:35 | NUR ---
LEFT WRIST COLLE'S SPLINT PLACED, FINGERS GRETA TAPPED, LEFT SHOULDER SLING PLACED. PT D/C'D HOME WITH ACI/RX X3 AND ORTHO REFERRAL. PT AMBULATED W/O DIFF/TOOK ALL BELONGINGS, AMBULATED W/O DIFF.
[2020-04-26 19:58] VITALS: BP 145/89
== END 2020-04-26 19:35 | disposition home or self-care (01) ==
LOC: ER 18:22
DX: S52.572A Other intraarticular fracture of lower end of left radius, initial encounter for closed fracture (principal); W01.0XXA Fall on same level from slipping, tripping and stumbling without subsequent striking against object, initial encounter; Y92.89 Other specified places as the place of occurrence of the external cause; Z88.5 Allergy status to narcotic agent; Z88.0 Allergy status to penicillin; Z88.2 Allergy status to sulfonamides; Z88.8 Allergy status to other drugs, medicaments and biological substances; G62.9 Polyneuropathy, unspecified; J45.909 Unspecified asthma, uncomplicated; I10 Essential (primary) hypertension; G89.4 Chronic pain syndrome
CPT/HCPCS: 73110; A4663